=== PATIENT | female | born 1970 | race African-American/Black ===

== ENCOUNTER 2023-06-10 12:48 | Emergency (ER) | payer OTHER ==
[2023-06-10 13:00] VITALS: BP 149/82; PULSE 91; RESP 18; TEMP 98.6; BMI 39.6
[2023-06-10] MEDS ORDERED: ACETAMINOPHEN 500 MG TABLET (FP) ONE ×2 (14:25→14:26)
== END 2023-06-10 14:31 | disposition home or self-care (01) ==
LOC: JERFT 12:48
DX: J01.90 Acute sinusitis, unspecified (principal); J02.9 Acute pharyngitis, unspecified; Z20.822 Contact with and (suspected) exposure to COVID-19
CPT/HCPCS: 0241U-QW; 99283-25

== ENCOUNTER 2023-08-04 11:09 | Emergency (ER) | payer OTHER ==
[2023-08-04 11:33] VITALS: BP 139/85; PULSE 82; RESP 17; TEMP 99.4; BMI 38.5
[2023-08-04] MEDS ORDERED: ACETAMINOPHEN 325 MG TABLET (FP) PO ONE (11:43)
[2023-08-04] MEDS ORDERED: ACETAMINOPHEN 325 MG TABLET (FP) ONE (11:53)
== END 2023-08-04 13:09 | disposition home or self-care (01) ==
LOC: JERFT 11:09
DX: R05.9 Cough, unspecified (principal); R09.89 Other specified symptoms and signs involving the circulatory and respiratory systems; R09.82 Postnasal drip; J02.9 Acute pharyngitis, unspecified; J06.9 Acute upper respiratory infection, unspecified; Z20.822 Contact with and (suspected) exposure to COVID-19
CPT/HCPCS: 0241U-QW; 99283-25